=== PATIENT | female | born 1955 | race Caucasian/White ===

== ENCOUNTER 2016-09-21 11:59 | Emergency (ER) | payer OTHER ==
--- NOTE | 2016-09-21 12:54 | PDOC ---
Lower Extremity Problem HPI - General Chief Complaint: Lower Extremity Problem/Injury Stated Complaint: RIGHT LEG PAIN Date Seen by Provider: 09/21/16 Time Seen by Provider: 12:52 - History of Present Illness Initial Comments: Patient is a very nice 61-year-old woman who presents to the emergency department with complaints of increasing swelling in her right lower extremity. She recently had a knee operation this right leg had been recovering pretty well but had some increasing redness and swelling in the almost entire to the leg over last few days worse today and came in concerned about blood clot in her leg. She denies any fever or chills. She denies any nausea or vomiting. Denies any shortness of breath or chest pain. - Patient Home Medications Home Medications: Home Medications Aripiprazole [Abilify] 5 mg PO DAILY 09/21/16 Atenolol 25 mg PO DAILY 09/21/16 Escitalopram Oxalate [Lexapro] 20 mg PO DAILY 09/21/16 Estradiol [Estrace] 0.5 mg PO DAILY 09/21/16 Levothyroxine Sodium [Synthroid] 75 mcg PO DAILY 09/21/16 Montelukast Sodium [Singulair] 10 mg PO HS 09/21/16 Omeprazole 40 mg PO DAILY 09/21/16 Oxycodone HCl/Acetaminophen [Percocet 7.5-325 Mg Tablet] 1 each PO Q6H PRN PRN 09/21/16 Ropinirole HCl [Ropinirole ER] 4 mg PO DAILY 09/21/16 Spironolactone 25 mg PO DAILY 09/21/16 Tiotropium [place] [Spiriva] 18 mcg IH DAILY 09/21/16 busPIRone HCL [Buspirone HCl] 5 mg PO DAILY 09/21/16 - Patient Allergies Allergies/Adverse Reactions: Allergies Allergy/AdvReac Type Severity Reaction Status Date / Time silver nitrate Allergy Intermediate RASH Verified 09/21/16 12:03 diazepam [From Valium] AdvReac Intermediate ADVERSE Verified 09/21/16 12:03 EFFECTS lisinopril AdvReac Intermediate COUGH Verified 09/21/16 12:03 metoclopramide HCl AdvReac Intermediate NUMB FACE Verified 09/21/16 12:03 [From Reglan] Past Medical History Past Medical History Reviewed: Reviewed - No Changes ROS - Limitations ROS Limitations: No Limitations Constitution: REPORTS: Denies Symptoms. DENIES: Chills, Fever Cardiovascular: REPORTS: Denies Cardiac Symptoms Respiratory: REPORTS: Denies Resp Symptoms Neurological: REPORTS: Denies Neuro Symptoms Lower Ext Problem Exam - General Appearance General Appearance: POSITIVE: Alert, Cooperative, No Acute Distress - Extremities Lower Extremity: POSITIVE: Other (Right lower extremity does have some 1-2+ pitting edema up through about the hip. There is some mild erythema to the entirety of the leg with some diffuse minimal tenderness. Good pulses in the feet. No obvious palpable cord. No significant discoloration other than the redness mentioned above. No substantial pain with flexion or extension of her toes are issues with her lower leg.) Vascular: POSITIVE: No Vascular Compromise - Neuro / Psych Neuro/Psych: POSITIVE: Sensation Normal, Motor Normal, Oriented to Person Lower Ext Problem Progress - Results Reviewed by me Radiology Findings: No acute thromboembolism - Patient's Progress MDM / ED Course: I have discussed with the patient there doesn't seem to be any acute thromboembolism in her right lower extremity that this is likely all related to soft tissue edema and swelling encourage her to put back on her GLO hose and keep the leg elevated as much as she can. She is encouraged follow-up with her orthopedist primary care provider in the next couple of days as well to make sure this is getting better. She is encouraged to return here with any new or different symptoms or anything of concern for her. Patient Care Time - Estimated PCT Patient Care Time (In Minutes): 30 Vital Signs - VS Reviewed Vital Signs Reviewed: Yes Discharge Clinical Impression: Swelling of right lower extremity Discharge Disposition: Discharged to Home Condition: Fair Patient Instructions Given at Discharge: Edema (ED) Additional Instructions: Follow-up with your primary care provider or orthopedist the next 2-3 days for reevaluation. Wear your GLO hose regularly Keep your extremity elevated when not in use Return here with any new symptoms concerns or any other issues.
--- NOTE | 2016-09-21 13:18 | DI ---
VENOUS DOPPLER ULTRASOUND OF THE RIGHT LOWER EXTREMITY, 09/21/2016 12:06 PM: Clinical History: Swelling and pain of the right lower extremity. Previous Exam: None. Technique: 2D real-time imaging is supplemented with color Doppler ultrasound. Compression and augmen tation maneuvers were performed. The long saphenous vein is normal. Reading: No evidence of deep venous thrombosis. ICD9: { } { }
[2016-09-21 15:39] VITALS: RESP 16; TEMP 97.1
== END 2016-09-21 14:05 | disposition home or self-care (01) ==
LOC: ER 11:59
DX: R22.41 Localized swelling, mass and lump, right lower limb (principal)
CPT/HCPCS: 93971; 99282